=== PATIENT | male | born 1950 | race Caucasian/White ===

== ENCOUNTER 2019-07-28 14:42 | Inpatient (IN) | payer MEDICARE, MEDICAID ==
[~2019-07-28] VITALS: Ht 175.3 cm; Wt 83.6 kg
[~2019-07-28 14:42] MED LIST: ALBUTEROL SULF8.5 GM INH; CATAPRES0.1 MG PO; CHOLESTEROL MED; COZAAR100 MG PO; EFFIENT10 MG PO; FUROSEMIDE40 MG PO; HYDROCHLOROTH12.5 M1; HYDROCHLOROTHIA25 MG PO; HYDROCODON-ACE1 EA10 PO; LIPITOR40 MG PO; PAXIL40 MG PO; PROTONIX40 MG PO; TIROSINT125 MCG PO; TIROSINT13 MCG; TOPROL XL25 MG PO; TRELEGY ELLIPT1 EACH INH; XANAX0.25 MG; XANAX1 MG PO; [UNRECOGNIZED DRUG - OTHER]
[2019-08-03] VITALS (44 sets, daily range): BP systolic 97–188; BP diastolic 52–89; Ht 175.3 cm; Wt 83.6 kg
[2019-08-03 09:03] LABS: HEMOGLOBIN 13.7 g/dL (13.5-17.5); MCH 31.8 pg (26.0-34.0); MCHC 33.4 g/dL (31.0-37.0); MCV 95.1 fL (80.0-100.0); MEAN PLATELET VOLUME 9.6 fL (7.4-10.4); RBC 4.31 10x6/uL (4.20-6.10); RDW 13.2 % (11.5-14.5); WBC 10.3 10x3/uL (4.8-10.8)
[2019-08-03 09:15] LABS: APTT 32.4 SECONDS (22.8-39.4); INR 0.94 (0.85-1.17); PROTIME 12.6 SECONDS (11.6-15.0)
[2019-08-03] MEDS ORDERED: VENTOLIN HFA [SP8 GM INH (09:23)
[2019-08-03] MEDS ORDERED: PROAIR HFA8.5 G1 INH (09:24)
[2019-08-03] MEDS ORDERED: NEURONTIN600 MG PO (09:25)
[2019-08-03] MEDS ORDERED: TOPROL XL25 MG PO (09:26)
[2019-08-03 09:29] LABS: ALBUMIN 3.6 g/dL (3.4-5.0); ANION GAP 12.2 mmol/L (8-16); BILIRUBIN - TOTAL 0.49 mg/dL (0.2-1.3); CALCIUM 9.1 mg/dL (8.5-10.1); CARBON DIOXIDE 28.7 mmol/L (21.0-32.0); CREATININE - SERUM 1.3 mg/dL (0.6-1.3); POTASSIUM - SERUM 3.9 mmol/L (3.5-5.1); PROTEIN - SERUM 8.4 g/dL (6.4-8.2)
[2019-08-03 09:46] LABS: BILIRUBIN NEGATIVE (NEGATIVE); GLUCOSE NEGATIVE (NEGATIVE); KETONE NEGATIVE (NEGATIVE); NITRITE NEGATIVE (NEGATIVE); UROBILINOGEN NORMAL (NORMAL)
[2019-08-03 09:49] LABS: RED CELLS - URINE 0-5 /hpf (0-5); WHITE CELLS - URINE 0-5 /hpf (NEGATIVE)
[2019-08-03 09:51] LABS: BACTERIA FEW /hpf (NEGATIVE); EPITHELIAL CELLS OCC /hpf (0-5)
--- NOTE | 2019-08-03 14:40 | NUR ---
PT ARRIVED TO UNIT AT 1434 VIA BED. PLACED ON MONITOR. ON 13L O2 VIA SIMPLE MASK. LEFT SIDE OF NECK DRESSING C/D/I. FAY CHEST RADHA DRAIN IN PLACE WITH BLOODY DRAINAGE NOTED. RIGHT SUBCLAVIAN CVL WITH PLASMOLYTE AT 30ML/HR, NITROGLYCERIN AT 16.67MCG/MIN. CUEVAS CATHETER IN PLACE WITH CONCENTRATED URINE NOTED. RIGHT RADIAL JOSEPHINE IN PLACE SECURED WITH WRIST PROTECTOR. LEFT FOREARM PIV DC'D ON ARRIVAL. SAFETY MEASURES IN PLACE. WILL CONTINUE TO MONITOR.
--- NOTE | 2019-08-03 15:17 | NUR ---
02 SAT 96%. O2 DECREASED TO 5L AT THIS TIME.
--- NOTE | 2019-08-03 15:45 | NUR ---
O2 SAT 96%. O2 DECREASED TO 2L. WILL CONTINUE TO MONITOR.
--- NOTE | 2019-08-03 16:49 | NUR ---
MAURISIO PAGED AT THIS TIME TO NOTIFY OF CONSULT.
--- NOTE | 2019-08-03 17:18 | NUR ---
CALLED [facility]. MESSAGE LEFT FOR ELECTRICIAN MACHINE SHOP PHYSICIAN. SECOND ATTEMPT TO NOTIFY OF CONSULT.
--- NOTE | 2019-08-03 17:33 | NUR ---
SPOKE WITH KAYLEY KRISHNAN APN WITH [facility] REGARDING CONSULT.
--- NOTE | 2019-08-03 17:45 | NUR ---
O2 DECREASED TO 1L. O2 SAT 94%. WILL CONTINUE TO MONITOR.
--- NOTE | 2019-08-03 19:00 | NUR ---
BEDSIDE REPORT AND SHIFT ASSESSMENT COMPLETE, SEE FLOWSHEET. VSS, NO SIGNS OF ACUTE DISTRESS NOTED. L NECK INCISION DRESSING CDI, RADHA DRAIN COMPRESSED. R SUBCLAVIAN CVL PATENT, SEE IV FLOWSHEET. PT DENIES ANY NEEDS AT THIS TIME. WILL CONTINUE TO MONITOR.
--- NOTE | 2019-08-03 21:55 | NUR ---
C/O PAIN 02/08, PRN ULTRAM GIVEN PER JUL.
--- NOTE | 2019-08-03 23:00 | NUR ---
REASSESSMENT COMPLETE, SEE FLOWSHEET.
[2019-08-04] VITALS (70 sets, daily range): BP systolic 99–149; BP diastolic 50–84
--- NOTE | 2019-08-04 01:00 | NUR ---
PT PULLING 1999 ON IS. REQUESTING CUP OF COFFEE. DENIES ANY OTHER NEEDS AT THIS TIME.
--- NOTE | 2019-08-04 05:45 | NUR ---
PT REFUSED CHG BATH, STATES WILL GIVE HIM ONE THIS AM WHEN SHE GETS HERE.
--- NOTE | 2019-08-04 06:00 | NUR ---
DESTIN AT BEDSIDE TO PULL RADHA. NEW BANDAGE APPLIED.
[2019-08-04 07:00] LABS: ANION GAP 13.8 mmol/L (8-16); CALCIUM 8.3 mg/dL (8.5-10.1); CARBON DIOXIDE 25.4 mmol/L (21.0-32.0); CREATININE - SERUM 1.4 mg/dL (0.6-1.3); POTASSIUM - SERUM 4.2 mmol/L (3.5-5.1)
--- NOTE | 2019-08-04 08:45 | NUR ---
DR NEAL'S NURSE COLLIN IN ROOM. UPDATE GIVEN. STATED TO START WEANING DRIPS ON PT.
[2019-08-04 09:52] LABS: PRO/CRE RATIO URINE 0.5 mg/g; PROTEIN - URINE 29.7 mg/dL (0.0-11.9)
--- NOTE | 2019-08-04 10:00 | NUR ---
PULLED PT CUEVAS. PT TOLERATED WELL. NO COMPLAINTS NOTED. URINAL PROVIDED.
[2019-08-04 10:06] LABS: ERYTHROCYTE SEDIMENTATION RATE 34 mm/hr (0-20)
--- NOTE | 2019-08-04 10:50 | NUR ---
REMOVED ARTERIAL LINE AND CVP MONITOR FROM PT. TOLERATED WELL. NO SIGNS OF BLEEDING NOTED. WILL CONTINUE TO MONITOR
[2019-08-04 12:29] LABS: BILIRUBIN NEGATIVE (NEGATIVE); GLUCOSE NEGATIVE (NEGATIVE); KETONE NEGATIVE (NEGATIVE); NITRITE NEGATIVE (NEGATIVE); UROBILINOGEN NORMAL (NORMAL)
[2019-08-04 12:30] LABS: BACTERIA FEW /hpf (NEGATIVE); EPITHELIAL CELLS RARE /hpf (0-5); WHITE CELLS - URINE RARE /hpf (NEGATIVE)
--- NOTE | 2019-08-04 13:10 | NUR ---
PT UP TO BEDSIDE CHAIR. TOLERATED WELL. VSS. WILL CONTINUE TO MONITOR
--- NOTE | 2019-08-04 13:45 | NUR ---
PHYSICAL THERAPY IN ROOM. PT WALKING DOWN HALLWAY. TOLERATING WELL. WILL CONTINUE TO MONITOR
--- NOTE | 2019-08-04 14:29 | NUR ---
FAMILY AT BEDSIDE. CENTRAL LINE SALINE LOCKED. NO ACUTE SIGNS OF DISTRESS NOTED. WILL CONTINUE TO MONITOR
--- NOTE | 2019-08-04 16:00 | NUR ---
RADIOLOGY IN ROOM TO WHEEL PT DOWN TO PERFORM CT. NO SIGNS OF DISTRESS NOTED. WILL CONTINUE TO MONITOR
--- NOTE | 2019-08-04 16:15 | NUR ---
PT BACK IN ROOM. ATTACHED TO CVICU MONITOR. WILL CONTINUE TO MONITOR
--- NOTE | 2019-08-04 19:25 | NUR ---
PT RECEIVED WITH EYES OPEN WATCHING TV. ICE WATER GIVEN. COMPLAINS OF PAIN AND STATES HE HAS CHRONIC PAIN. NORCO SCHEDULED AND PRN ULTRAM NOT AVAILABLE AT THIS TIME EXPLAINED TO PATIENT AND PT OK. WILL GIVEN WHEN AVAILABLE. NO OTHER NEEDS OR CONCERNS MADE KNOWN. CALL LIGHT IN REACH. WILL CONTINUE TO OBSERVE.
--- NOTE | 2019-08-04 21:03 | NUR ---
PT WATCHING TV. NO NEEDS OR CONCERNS NOTED. CALL LIGHT IN REACH. WILL CONTNUE TO OBSERVE.
--- NOTE | 2019-08-04 23:20 | NUR ---
PT RESTING WITH EYES CLOSED AND CHEST RISING. EASILY AWOKEN WITH VERBAL STIMULI. NO NEEDS MADE KNOWN. CALL LIGHT IN REACH. WILL CONTINUE TO OBSERVE.
[2019-08-05] VITALS (14 sets, daily range): BP systolic 110–163; BP diastolic 62–100
--- NOTE | 2019-08-05 01:32 | NUR ---
PT RESTING WITH EYES CLOSED AND CHEST RISING. NO S/S OF DISTRESS. CALL LIGHT IN REACH. WILL CONTINUE TO OBSERVE.
[2019-08-05 10:45] LABS: HEPATITIS C ANTIBODY >11.0 S/CO RAT (0.0-0.9)
[2019-08-05 14:09] LABS: UPE RAND - ALBUMIN 39.1 % (()); UPE RAND - ALPHA 2 GLOBULIN 13.7 % (()); UPE RAND - BETA GLOBULIN 22.6 % (()); UPE RAND - GAMMA GLOBULIN 22.6 % (())
--- NOTE | 2019-08-05 14:35 | NUR ---
1200: CENTRAL LINE DC'D. MANUAL PRESSURE HELD X 5 MIN. SITE DRESSED WITH 2X2 AND TEGADERM. 1430: DISCHARGE INSTRUCTIONS REVIEWED. 1432: DISCHARGED HOME WITH .
[2019-08-05 15:10] LABS: SPE - A/G RATIO 0.9 (0.7-1.7); SPE - ALBUMIN 2.9 g/dL (2.9-4.4); SPE - ALPHA-1 GLOBULIN 0.2 g/dL (0.0-0.4); SPE - ALPHA-2 GLOBULIN 0.9 g/dL (0.4-1.0); SPE - GAMMA GLOBULIN 1.1 g/dL (0.4-1.8); SPE - M-SPIKE Not Observed g/dL (Not Observed); SPE - TOTAL PROTEIN 6.1 g/dL (6.0-8.5)
--- NOTE | 2019-08-05 19:02 | OP ---
PATIENT NAME: PETTY RAMIREZ MEDICAL RECORD: [id number] :52 LOCATION:[facility] D.CV07 ADMISSION DATE:08/03/19 SURGEON: GARRY NEAL MD DATE OF OPERATION: 08/03/2019 SURGEON: Garry Neal MD ANESTHESIA: General, Dr. Corral. OPERATION PERFORMED: Left carotid endarterectomy with patch angioplasty. PREOPERATIVE DIAGNOSIS: Severe left internal carotid artery stenosis. POSTOPERATIVE DIAGNOSIS: Severe left internal carotid artery stenosis. INDICATION FOR OPERATION: Severe left internal carotid artery stenosis. FINDINGS AT OPERATION: Severe left internal carotid artery stenosis. There were EEG changes with clamping of the carotid artery, necessitating a shunt. ESTIMATED BLOOD LOSS: Less than 150 cc. DESCRIPTION OF PROCEDURE: After informed consent, adequate preoperative medication evaluation, the patient was brought to the operating room, placed in supine position. After induction of general endotracheal anesthesia and application of appropriate monitoring devices, left neck was prepped and draped in sterile field, utilizing Betadine scrub, alcohol, and Betadine solution, a Betadine-impregnated drape was also used. An oblique incision was made in the skin crease. Dissection carried down the fascia. Hemostasis maintained with electrocautery. Facial vein was identified and divided. Utilizing sharp dissection, the common carotid, internal and external carotid arteries were dissected free from surrounding structures, protecting the neurological structures. The bifurcation was high and required distal dissection and dissection of the external carotid artery to its bifurcation. The patient was given a calculated dose of heparin, after 3 minutes, clamps were applied. After less than a minute, the EEG changed as well as the cerebral oximetry. The clamps were removed. A shunt was prepared. The clamps were reapplied, artery opened and the shunt placed. The EEG returned to normal. The artery underwent endarterectomy sharply. Artery underwent extensive debridement and irrigation. Utilizing a CorMatrix vascular patch and running 6-0 Prolene suture, the arteriotomy was closed with patch angioplasty technique. The shunt was removed and the last few sutures were placed. The clamps were removed after all maneuvers to remove trapped air were performed and the EEG returned to baseline. The patient was given a calculated dose of protamine to reverse the heparin. Hemostasis was achieved. A #10 Fabio-Lackey drain was left in depths of wound and brought through the base of the neck. Neck was again irrigated. Instrument counts and sponge count were correct times 2. Neck was closed in layers utilizing 3-0 Vicryl on the platysma, 5-0 subcuticular Monocryl on the skin. Sterile dressings were applied. The patient tolerated the procedure well and was transferred to the CV ICU in satisfactory condition. TRANSINT:[id number] Voice Confirmation ID: [id number] DOCUMENT ID: [id number] OPERATIVE REPORT [id number] PETTY RAMIREZ EDWARD MD at 1902 CC: [id number] DICTATION DATE: 08/03/19 1428 CO SUPERVISOR GROUNDS [employer] LANDSCAPE: 08/03/19 194 DIS IN 08/05/19 [facility] [address] [place] [address]
--- NOTE | 2019-08-05 21:58 | MORECARE ---
CASE MANAGEMENT DISCHARGE SUMMARY PATIENT: PETTY RAMIREZ UNIT: [id number] ADM DATE: 08/03/19 AGE: 68 : 51 SEX: M [facility] AUTHOR: NIC REDDY PHYSICIAN: REFERRING PHYSICIAN: GLADYS NEAL MD DATE OF SERVICE: 08/05/19 Discharge Plan Patient Name: PETTY RAMIREZ [facility] [facility] 1950 Planned Disposition: Home with Home Health Anticipated Discharge Date: Discharge Date: 08/05/2019 Expected LOS: Initial Reviewer: [email or web address] Initial Review Date: 08/03/2019 Generated: 08/05/19 10:58 pm Patient Name: PETTY RAMIREZ Page [id number] at 2158 All edits/amendments must be made on the electronic document DICTATION DATE: 08/05/192157 FITNESS STUDIES TEACHER: BRAEDEN 08/05/192157 RPT#: [id number] DC DATE:08/05/19 STATUS: DIS IN [facility] [address] [place] [address] END OF REPORT
--- NOTE | 2019-08-05 22:05 | MORECARE ---
CASE MANAGEMENT DISCHARGE SUMMARY PATIENT: PETTY RAMIREZ UNIT: [id number] ADM DATE: 08/03/19 AGE: 68 : 51 SEX: M ROOM/BED: D[facility] AUTHOR: MAUREEN,DOC PHYSICIAN: REFERRING PHYSICIAN: GLADYS NEAL MD DATE OF SERVICE: 08/05/19 Discharge Plan Patient Name: PETTY RAMIREZ Facility: [facility]:[place] : 1950 Planned Disposition: Home with Home Health Anticipated Discharge Date: Discharge Date: 08/05/2019 Expected LOS: Initial Reviewer: [email or web address] Initial Review Date: 08/03/2019 Generated: 08/05/19 11:04 pm Comments DCP- Discharge Planning Updated by [email or web address]: Svitlana Espana on 08/05/19 9:[address] Patient Name: PETTY RAMIREZ Admission Status: Elective Accout number: [id number] Admission Date: 08-03-2019 : 1950 Admission Diagnosis: Attending: GLADYS NEAL Current LOS: 2 Anticipated DC Date: Planned Disposition: Home with Home Health Primary Insurance: [employer] MEDICARE PPO or HMO Discharge Planning Comments: CM met with patient at bedside after explaining CM role and obtaining verbal consent. Patient lives at home with his Christiano where he is independent with his care and plans to return there upon discharge. Patient feels this would be a safe discharge. CM discussed availability / needs of home health and medical equipment. Patient denies any discharge needs at this time. Patient states he will have his family drive him home upon discharge. RYLAN signed to resume Hayes . CM will continue to follow and assist as needed with discharge planning / needs. Master Rigger: Svitlana Espana DCPIA - Discharge Planning Initial Assessment Updated by [email or web address]: Svitlana Espana on 08/05/19 9:59 pm * Is the patient Alert and Oriented? Yes * How many steps to enter\exit or inside your home? * PCP [facility] * [facility] * Preadmission Environment Home with Family * ADLs Independent * Equipment Nebulizer * Other Equipment cane * List name and contact numbers for known caregivers / representatives who currently or will assist patient after discharge: christiano hubbard - life partner- [phone] * Verbal permission to speak to the caregivers and representatives has been obtained from the patient. Yes * Community resources currently utilized Home Health * Please name any agencies selected above. derrek * Additional services required to return to the preadmission environment? No * Can the patient safely return to the preadmission environment? Yes * Has this patient been hospitalized within the prior 30 days at any hospital? No Coverage Notice Reviewer: [email or web address] [place]on Espana Notice Issued Date-Time: 08/05/2019 13:00 Notice Type: Patient Choice Letter Notice Delivered To: Patient Relationship to Patient: Self Rehab Manager Name: Delivery Method: HAND - Hand Delivered Leticia Days: Prior Verbal Notification: Recipient Understood Notice: Yes Recipient Signature: Yes Med Rec Note Co-signed by Attending: Coverage Notice Comment: jackson WILLAMS Last DP export: 08/05/19 8:58 pm Patient Name: PETTY RAMIREZ Page 34556 at 2205 All edits/amendments must be made on the electronic document DICTATION DATE: 08/05/192203 FINANCIAL DIRECTOR: BRAEDEN 08/05/192203 RPT#: [id number] DC DATE:08/05/19 STATUS: DIS IN [facility] [address] [place] [address] END OF REPORT
[2019-08-07 21:06] LABS: HCVGENO - HEP C QUANT 2360000 IU/mL (()); HCVGENO - LOG 10 6.373 (())
== END 2019-08-05 14:32 | disposition home or self-care (01) | DRG 39 ==
LOC: D.SDCHOLD 08-03 07:30 → D.CVICU 08-03 08:36 → D.SDCHOLD 08-03 11:10 → D.CVICU 08-03 14:15
PROVIDERS: Internal Medicine Nephrology; ADMIT Internal Medicine Cardiovascular Disease; ATTEND Internal Medicine Cardiovascular Disease
PROC: 03UL0JZ Supplement Left Internal Carotid Artery with Synthetic Substitute, Open Approach (ICD-10-PCS; 2019-08-03)
PROC: 03CL0ZZ Extirpation of Matter from Left Internal Carotid Artery, Open Approach (ICD-10-PCS; principal; 2019-08-03 11:10)
DX: I65.22 Occlusion and stenosis of left carotid artery (principal); G40.909 Epilepsy, unspecified, not intractable, without status epilepticus; I12.9 Hypertensive chronic kidney disease with stage 1 through stage 4 chronic kidney disease, or unspecified chronic kidney disease; N18.2 Chronic kidney disease, stage 2 (mild); E03.9 Hypothyroidism, unspecified; R55 Syncope and collapse; Z86.19 Personal history of other infectious and parasitic diseases; K21.9 Gastro-esophageal reflux disease without esophagitis; R31.29 Other microscopic hematuria; I71.4 Abdominal aortic aneurysm, without rupture; J44.9 Chronic obstructive pulmonary disease, unspecified